=== PATIENT | female | born 1990 | race African-American/Black ===

== ENCOUNTER 2016-11-10 23:35 | Emergency (ER) | payer OTHER ==
[~2016-11-10] VITALS: Ht 167.6 cm; Wt 105.0 kg
[~2016-11-10 23:35] MED LIST: LOSA25TA12
[2016-11-11] MEDS ORDERED: LORAZEPAM 1MG TABLET PO ONE (01:15)
[2016-11-11 01:27] LABS: HEMOGLOBIN. 13.8 g/dL (12.0-16.0); MEAN CORPUSCULAR HEMOGLOBIN 28.8 pg (28.0-32.0); MEAN CORPUSCULAR HGB CONC 33.7 g/dL (31.0-37.0); MEAN CORPUSCULAR VOLUME 85.3 fL (81.0-99.0); MEAN PLATELET VOLUME 7.4 fl (7.4-10.4); MONOCYTES % 5.8 % (2.0-8.0); NEUTROPHILS % 58.2 % (40.0-76.0); PLATELET 339 x1000/uL (130-400); RED CELL DISTRIBUTION WIDTH 14.6 % (11.6-14.6); WHITE BLOOD COUNT 6.1 x1000/uL (4.5-11.0)
[2016-11-11 01:37] LABS: ANION GAP 14; CALCIUM 8.8 mg/dL (8.5-10.1); CARBON DIOXIDE 27 mEq/L (21-32); CHLORIDE 103 mEq/L (98-107); INDEX HEMOLYSI 1 (1-3); INDEX ICTERIC 1 (1-4); INDEX LIPEMIC 1 (1-3); UREA NITROGEN BLOOD 13 mg/dL (7-21); eGFR > 60 mL/min (>60)
[2016-11-11 01:40] LABS: TROPONIN I < 0.02 ng/mL (0.00-0.04)
[2016-11-11] MEDS ORDERED: HYDROCODONE/ACETAMINOPHEN 5/325MG TABLET PO ONE (03:45)
[2016-11-11 04:30] VITALS: BP 134/85
== END 2016-11-11 05:13 | disposition home or self-care (01) ==
LOC: ER 23:38
DX: I12.9 Hypertensive chronic kidney disease with stage 1 through stage 4 chronic kidney disease, or unspecified chronic kidney disease (principal); N18.9 Chronic kidney disease, unspecified; Z79.899 Other long term (current) drug therapy
CPT/HCPCS: 36415; 71010; 80048; 81025; 84484; 85025; 93005; 99285

== ENCOUNTER 2017-10-03 11:44 | Emergency (ER) | payer OTHER | END 2017-10-03 15:00 | disposition left against medical advice (07) | LOC: ER 13:06 | DX: Z53.21 Procedure and treatment not carried out due to patient leaving prior to being seen by health care provider (principal) ==

== ENCOUNTER 2019-02-01 12:43 | Observation (INO) | payer OTHER ==
[~2019-02-01] VITALS: Ht 166.4 cm; Wt 112.5 kg
[~2019-02-01 12:43] MED LIST changes: -LOSA25TA12; +LOSA25TA26
[2019-02-01] MEDS ORDERED: ASPI-1393 PO (13:04)
[2019-02-01] MEDS ORDERED: PNV1TABL76 PO (13:04)
[2019-02-01] MEDS ORDERED: LABE200T28 PO (13:04)
== END 2019-02-01 14:55 | disposition home or self-care (01) ==
LOC: 8 EST LDRP 12:43
PROVIDERS: ADMIT Obstetrics & Gynecology; ATTEND Obstetrics & Gynecology
DX: O26.892 Other specified pregnancy related conditions, second trimester (principal); R10.30 Lower abdominal pain, unspecified; Z3A.24 24 weeks gestation of pregnancy
CPT/HCPCS: 99281; G0378

== ENCOUNTER 2019-08-17 22:01 | Emergency (ER) | payer OTHER ==
[~2019-08-17] VITALS: Ht 167.6 cm; Wt 99.0 kg
[~2019-08-17 22:01] MED LIST changes: +ASPI-1393 PO; +LABE200T28 PO; -LOSA25TA26; +PNV1TABL76 PO
[2019-08-17] MEDS ORDERED: ACETAMINOPHEN 500MG TABLET PO ONE (23:45)
[2019-08-18 00:20] LABS: BASOPHILS % 0.9 % (0.0-2.0); EOSINOPHILS % 3.9 % (0.0-5.0); HEMATOCRIT. 37.8 % (36.0-48.0); HEMOGLOBIN. 12.7 g/dL (12.0-16.0); LYMPHOCYTES % 39.4 % (20.0-50.0); MEAN CORPUSCULAR HEMOGLOBIN 28.8 pg (28.0-32.0); MEAN CORPUSCULAR VOLUME 85.6 fL (81.0-99.0); MEAN PLATELET VOLUME 7.1 fl (7.4-10.4); NEUTROPHILS % 47.8 % (40.0-76.0); PLATELET 321 x1000/uL (130-400); RED BLOOD CELL COUNT 4.42 mill/uL (4.2-5.4); RED CELL DISTRIBUTION WIDTH 15.3 % (11.6-14.6)
[2019-08-18 00:25] LABS: CHLORIDE 107 mEq/L (98-107)
[2019-08-18 01:00] VITALS: BP 169/110
[2019-08-18] MEDS ORDERED: LABETALOL HCL 200MG TABLET PO SCH (01:00)
[2019-08-18] MEDS ORDERED: LABETALOL HCL 100MG TABLET PO SCH (01:00)
== END 2019-08-18 01:22 | disposition home or self-care (01) ==
LOC: ER 22:01
DX: J34.89 Other specified disorders of nose and nasal sinuses (principal); I10 Essential (primary) hypertension; Z98.890 Other specified postprocedural states; Z79.82 Long term (current) use of aspirin; Z79.899 Other long term (current) drug therapy
CPT/HCPCS: 36415; 71045; 84443; 99284

== ENCOUNTER 2021-04-20 19:40 | Emergency (ER) | payer OTHER ==
[~2021-04-20] VITALS: Ht 172.7 cm; Wt 90.0 kg
[~2021-04-20 19:40] MED LIST changes: -ASPI-1393 PO; +ASPI-1497 PO; -LABE200T28 PO; +LABE200T9 PO
[2021-04-20] MEDS ORDERED: LABETALOL 5MG/ML SYR 20 MG/4 ML SYRINGE IV ONE (23:15)
[2021-04-20 23:30] LABS: BASOPHILS % 0.7 % (0.0-2.0); EOSINOPHILS % 3.4 % (0.0-5.0); HEMATOCRIT. 37.9 % (36.0-48.0); HEMOGLOBIN. 12.7 g/dL (12.0-16.0); LYMPHOCYTES % 25.1 % (20.0-50.0); MEAN CORPUSCULAR HEMOGLOBIN 26.9 pg (28.0-32.0); MEAN CORPUSCULAR VOLUME 80.2 fL (81.0-99.0); MEAN PLATELET VOLUME 7.6 fl (7.4-10.4); MONOCYTES % 6.3 % (2.0-8.0); NEUTROPHILS % 64.5 % (40.0-76.0); PLATELET 326 x1000/uL (130-400); RED BLOOD CELL COUNT 4.72 mill/uL (4.2-5.4); RED CELL DISTRIBUTION WIDTH 15.6 % (11.6-14.6)
[2021-04-20 23:37] LABS: CHLORIDE 106 mEq/L (98-107)
[2021-04-20 23:46] LABS: CLARITY URINE CLEAR (CLEAR); COLOR URINE YELLOW (YELLOW); KETONES URINE NEGATIVE (NEGATIVE); LEUKOCYTE ESTERASE URINE NEGATIVE (NEGATIVE); NITRITE URINE NEGATIVE (NEGATIVE); OCCULT BLOOD URINE NEGATIVE (NEGATIVE); PH URINE 7.5 (4.5-8.0); PROTEIN URINE 2+ (NEGATIVE); SPECIFIC GRAVITY URINE 1.011 (1.005-1.030); UROBILINOGEN URINE 0.2 E.U./dL (0.2-1.0)
[2021-04-21] MEDS ORDERED: ACETAMINOPHEN 325MG TABLET PO ONE (01:30)
[2021-04-21] MEDS ORDERED: LABETALOL 5MG/ML SYR 20 MG/4 ML SYRINGE IV ONE (02:00)
[2021-04-21 02:48] VITALS: BP 130/80
== END 2021-04-21 02:57 | disposition home or self-care (01) ==
LOC: ER 22:40
DX: O26.891 Other specified pregnancy related conditions, first trimester (principal); Z3A.13 13 weeks gestation of pregnancy; I10 Essential (primary) hypertension; Z98.890 Other specified postprocedural states
CPT/HCPCS: 36415; 80053; 81003; 85025; 93005; 96374; 96376; 99291; J3490

== ENCOUNTER 2021-06-21 12:34 | Observation (INO) | payer OTHER, BC ==
[~2021-06-21] VITALS: Ht 165.1 cm; Wt 112.5 kg
[2021-06-21] MEDS ORDERED: LABETALOL HCL 200MG TABLET PO SCH (13:15)
== END 2021-06-21 15:30 | disposition home or self-care (01) ==
LOC: 8 EST LDRP 12:34
PROVIDERS: ADMIT Obstetrics & Gynecology; ATTEND Obstetrics & Gynecology
DX: O26.892 Other specified pregnancy related conditions, second trimester (principal); R10.9 Unspecified abdominal pain; O16.2 Unspecified maternal hypertension, second trimester; Z3A.22 22 weeks gestation of pregnancy
CPT/HCPCS: 59025; 76805; G0378; 99281

== ENCOUNTER 2021-08-25 16:52 | Inpatient (IN) | payer BC, MEDICAID ==
[~2021-08-25] VITALS: Ht 167.6 cm; Wt 111.6 kg
[2021-08-25] MEDS ORDERED: NIFE90TA2 PO (17:21)
[2021-08-25] MEDS ORDERED: CARBOPROST TROMETHAMINE 250 MCG/ML AMPUL IM PRN (17:45)
[2021-08-25] MEDS ORDERED: METHYLERGONOVINE MALEATE 0.2 MG/ML IM PRN (17:45)
[2021-08-25] MEDS ORDERED: NALOXONE HCL 0.4 MG/ML 1ML VIAL IM PRN (17:45)
[2021-08-25] MEDS: LACTATED RINGERS 1,000 ML IV SCH ×2 (17:55→21:07)
[2021-08-25] MEDS ORDERED: DEXT 5%/LR + PITOCIN 20UNITS/L 1,000 ML IV SCH (18:00)
[2021-08-25 18:21] LABS: CLARITY URINE CLEAR (CLEAR); COLOR URINE YELLOW (YELLOW); KETONES URINE TRACE (NEGATIVE); LEUKOCYTE ESTERASE URINE NEGATIVE (NEGATIVE); NITRITE URINE NEGATIVE (NEGATIVE); OCCULT BLOOD URINE NEGATIVE (NEGATIVE); PROTEIN URINE 3+ (NEGATIVE); SPECIFIC GRAVITY URINE 1.022 (1.005-1.030); UROBILINOGEN URINE 0.2 E.U./dL (0.2-1.0)
[2021-08-25 18:22] LABS: BASOPHILS % 0.4 % (0.0-2.0); EOSINOPHILS % 1.9 % (0.0-5.0); HEMATOCRIT. 34.4 % (36.0-48.0); HEMOGLOBIN. 11.3 g/dL (12.0-16.0); LYMPHOCYTES % 23.4 % (20.0-50.0); MEAN CORPUSCULAR HEMOGLOBIN 26.5 pg (28.0-32.0); MEAN CORPUSCULAR VOLUME 80.7 fL (81.0-99.0); MEAN PLATELET VOLUME 8.6 fl (7.4-10.4); MONOCYTES % 8.1 % (2.0-8.0); NEUTROPHILS % 66.2 % (40.0-76.0); PLATELET 294 x1000/uL (130-400); RED BLOOD CELL COUNT 4.27 mill/uL (4.2-5.4); RED CELL DISTRIBUTION WIDTH 18.6 % (11.6-14.6)
[2021-08-25 18:32] LABS: *AMPHETAMINES SCREEN URINE NEGATIVE (NEGATIVE); *BARBITURATES SCREEN URINE NEGATIVE (NEGATIVE); *BENZODIAZEPINES SCREEN URINE NEGATIVE (NEGATIVE); *COCAINE SCREEN URINE NEGATIVE (NEGATIVE); METHADONE URINE SCREEN NEGATIVE (NEGATIVE)
[2021-08-25 18:33] LABS: CANNABINOID URINE SCREEN NEGATIVE (NEGATIVE); OPIATES URINE SCREEN NEGATIVE (NEGATIVE); PHENCYCLIDINE URINE SCREEN NEGATIVE (NEGATIVE)
[2021-08-25 18:58] LABS: HEPATITIS B SURFACE ANTIGEN NEGATIVE
[2021-08-25 19:00] LABS: INR 0.9; PARTIAL THROMBOPLASTIN TIME 29.3 sec (23.4-31.0); PROTHROMBIN TIME 9.6 sec (9.6-11.0)
[2021-08-25] MEDS ORDERED: LABETALOL HCL 5MG/ML VIAL 20ML IV PRN ×3 (19:15)
[2021-08-25] MEDS ORDERED: HYDRALAZINE 20MG/ML VIAL IV PRN ×2 (19:15)
[2021-08-25] MEDS ORDERED: HYDRALAZINE 20MG/ML VIAL IV NR ×2 (19:30→22:00)
[2021-08-25] MEDS ORDERED: HYDRALAZINE 20MG/ML VIAL IV ONE (19:30)
[2021-08-25] MEDS ORDERED: BETAMETHASONE ACET/BETAMET 30 MG/5 ML VIAL IM SCH (20:00)
[2021-08-25 20:15] LABS: CHLORIDE 109 mEq/L (98-107)
[2021-08-25 20:21] LABS: D-DIMER 0.95 mg/L FEU (<0.50)
[2021-08-25 22:40] LABS: BASOPHILS % 0.5 % (0.0-2.0); EOSINOPHILS % 2.2 % (0.0-5.0); HEMATOCRIT. 33.8 % (36.0-48.0); HEMOGLOBIN. 11.5 g/dL (12.0-16.0); LYMPHOCYTES % 17.4 % (20.0-50.0); MEAN CORPUSCULAR HEMOGLOBIN 27.3 pg (28.0-32.0); MEAN CORPUSCULAR VOLUME 80.3 fL (81.0-99.0); MEAN PLATELET VOLUME 8.6 fl (7.4-10.4); NEUTROPHILS % 75.9 % (40.0-76.0); PLATELET 288 x1000/uL (130-400); RED BLOOD CELL COUNT 4.21 mill/uL (4.2-5.4)
[2021-08-25 22:46] LABS: CLARITY URINE CLEAR (CLEAR); COLOR URINE YELLOW (YELLOW); KETONES URINE NEGATIVE (NEGATIVE); LEUKOCYTE ESTERASE URINE NEGATIVE (NEGATIVE); NITRITE URINE NEGATIVE (NEGATIVE); OCCULT BLOOD URINE NEGATIVE (NEGATIVE); PROTEIN URINE 2+ (NEGATIVE); SPECIFIC GRAVITY URINE 1.012 (1.005-1.030); UROBILINOGEN URINE 0.2 E.U./dL (0.2-1.0)
[2021-08-25 22:47] LABS: CHLORIDE 111 mEq/L (98-107)
[2021-08-25 22:54] LABS: D-DIMER 1.03 mg/L FEU (<0.50); INR 0.9; PARTIAL THROMBOPLASTIN TIME 29.8 sec (23.4-31.0); PROTHROMBIN TIME 9.6 sec (9.6-11.0)
[2021-08-26] VITALS (7 sets, daily range): BP systolic 107–142; BP diastolic 59–83
[2021-08-26] MEDS ORDERED: ACETAMINOPHEN 500MG TABLET PO NR (01:30)
[2021-08-26] MEDS ORDERED: HYDRALAZINE 20MG/ML VIAL IV PRN (05:00)
[2021-08-26] MEDS ORDERED: LABETALOL HCL 5MG/ML VIAL 20ML IV PRN ×3 (05:00)
[2021-08-26] MEDS: LACTATED RINGERS 1,000 ML IV SCH (05:08)
[2021-08-26] MEDS ORDERED: OXYTOCIN 10 UNITS/ML 1ML ONE (07:42)
[2021-08-26] MEDS ORDERED: FENTANYL CITRATE/PF 50MCG/ML 2ML VIAL ONE (07:42)
[2021-08-26] MEDS ORDERED: MORPHINE SULFATE/PF 1MG/ML 10ML AMP ONE (07:42)
[2021-08-26] MEDS ORDERED: PHENYLEPHRINE HCL 10 MG/ML 1ML (IV VIAL) IV ONE (07:42)
[2021-08-26] MEDS ORDERED: EPHEDRINE SULFATE 50MG/ML VIAL ONE (07:43)
[2021-08-26] MEDS ORDERED: DIPHENHYDRAMINE 50MG/ML VIAL ONE (07:43)
[2021-08-26] MEDS ORDERED: ONDANSETRON HCL 4MG/2ML INJ ONE (07:43)
[2021-08-26] MEDS ORDERED: CEFAZOLIN SODIUM 1000MG/VIAL ONE (07:43)
[2021-08-26] MEDS ORDERED: HYDRALAZINE 20MG/ML VIAL ONE (08:09)
[2021-08-26] MEDS ORDERED: BUTORPHANOL TARTRATE 2 MG/ML VIAL IV PRN ×2 (08:45→13:30)
[2021-08-26] MEDS ORDERED: NALOXONE HCL 0.4 MG/ML 1ML VIAL IV PRN (08:45)
[2021-08-26] MEDS ORDERED: DIPHENHYDRAMINE 50MG/ML VIAL IV PRN (08:45)
[2021-08-26] MEDS ORDERED: LANOLIN OINT 7GM TUBE TOP PRN (09:00)
[2021-08-26] MEDS ORDERED: RHO(D) IMMUNE GLOBULIN 300 MCG/SYR IM PRN (09:00)
[2021-08-26] MEDS ORDERED: ONDANSETRON HCL 4MG/2ML INJ IV PRN (09:00)
[2021-08-26] MEDS ORDERED: HEMORRHOIDAL SUPP PR PRN (09:00)
[2021-08-26] MEDS ORDERED: IBUPROFEN 400MG TABLET PO PRN (09:00)
[2021-08-26] MEDS ORDERED: BISACODYL 10MG SUPP PR PRN (09:00)
[2021-08-26] MEDS ORDERED: DIPHENHYDRAMINE 25MG CAPSULE PO PRN (09:00)
[2021-08-26] MEDS ORDERED: HYDROCODONE/ACETAMINOPHEN 5/325MG TABLET PO PRN (09:00)
[2021-08-26] MEDS ORDERED: MAGNESIUM 4 G PREMIX 100 ML IV NR (09:10)
[2021-08-26] MEDS: MAGNESIUM 20 G PREMIX (L & D) 500 ML IV SCH (09:39)
[2021-08-26] MEDS: DEXT 5%/LR + PITOCIN 20UNITS/L 1,000 ML IV SCH ×2 (11:07→21:06)
[2021-08-26] MEDS ORDERED: LABETALOL HCL 300MG TABLET PO SCH (13:00)
[2021-08-26] MEDS: LABETALOL HCL 200MG TABLET PO SCH (22:02)
[2021-08-27 00:15] VITALS: BP 110/61
[2021-08-27 03:00] VITALS: BP 116/68
[2021-08-27 05:00] VITALS: BP 132/71
[2021-08-27] MEDS: MAGNESIUM 20 G PREMIX (L & D) 500 ML IV SCH (05:03)
[2021-08-27] MEDS: LABETALOL HCL 200MG TABLET PO SCH ×3 (05:51→22:15)
[2021-08-27] MEDS: MAGNESIUM/ALUMINUM HYDROXIDE/SIMETHICONE 30ML UDC PO SCH ×6 (07:30→21:04)
[2021-08-27] MEDS: DEXT 5%/LR + PITOCIN 20UNITS/L 1,000 ML IV SCH (07:31)
[2021-08-27 07:40] LABS: BASOPHILS % 0.1 % (0.0-2.0); EOSINOPHILS % 0.1 % (0.0-5.0); HEMATOCRIT. 22.4 % (36.0-48.0); HEMOGLOBIN. 7.7 g/dL (12.0-16.0); LYMPHOCYTES % 13.9 % (20.0-50.0); MEAN CORPUSCULAR HEMOGLOBIN 27.7 pg (28.0-32.0); MEAN CORPUSCULAR VOLUME 80.9 fL (81.0-99.0); MEAN PLATELET VOLUME 8.6 fl (7.4-10.4); MONOCYTES % 4.8 % (2.0-8.0); NEUTROPHILS % 81.1 % (40.0-76.0); PLATELET 248 x1000/uL (130-400); RED BLOOD CELL COUNT 2.77 mill/uL (4.2-5.4); RED CELL DISTRIBUTION WIDTH 18.6 % (11.6-14.6)
[2021-08-27 08:00] VITALS: BP 130/72
[2021-08-27] MEDS: PRENATAL VIT/FE FUMARATE/FA TABLET PO SCH (08:09)
[2021-08-27] MEDS: FERROUS SULFATE 325MG TABLET PO SCH ×3 (08:09→17:58)
[2021-08-27] MEDS: SIMETHICONE 80MG TABLET CHEW PO SCH ×4 (08:10→21:03)
[2021-08-27] MEDS: IBUPROFEN 800MG TABLET PO PRN ×2 (13:00→21:04)
[2021-08-27 14:00] VITALS: BP 136/67
[2021-08-27 20:00] VITALS: BP 125/68
[2021-08-27] MEDS: DOCUSATE SODIUM 100MG CAPSULE PO SCH (21:04)
[2021-08-28 05:30] VITALS: BP 136/86
[2021-08-28] MEDS: LABETALOL HCL 200MG TABLET PO SCH ×3 (05:54→21:35)
[2021-08-28 07:30] VITALS: BP 141/82
[2021-08-28] MEDS: SIMETHICONE 80MG TABLET CHEW PO SCH ×5 (08:00→21:35)
[2021-08-28] MEDS: FERROUS SULFATE 325MG TABLET PO SCH ×3 (08:49→17:20)
[2021-08-28] MEDS: IBUPROFEN 800MG TABLET PO PRN ×2 (08:49→17:21)
[2021-08-28] MEDS: PRENATAL VIT/FE FUMARATE/FA TABLET PO SCH (08:49)
[2021-08-28 13:55] VITALS: BP 168/88
[2021-08-28 17:24] LABS: MEAN CORPUSCULAR VOLUME 81.6 fL (81.0-99.0); PLATELET 249 x1000/uL (130-400); RED BLOOD CELL COUNT 2.56 mill/uL (4.2-5.4); RED CELL DISTRIBUTION WIDTH 19.2 % (11.6-14.6)
[2021-08-28 17:37] LABS: HEMOGLOBIN 6.9 g/dL (12.0-16.0)
[2021-08-28 17:38] LABS: HEMATOCRIT 20.9 % (36.0-48.0)
[2021-08-28 20:00] VITALS: BP 170/98
[2021-08-28] MEDS: MAGNESIUM/ALUMINUM HYDROXIDE/SIMETHICONE 30ML UDC PO SCH ×2 (21:00→21:35)
[2021-08-28] MEDS: DOCUSATE SODIUM 100MG CAPSULE PO SCH (21:35)
[2021-08-29] VITALS: BP 129/80
[2021-08-29 04:00] VITALS: BP 142/80
[2021-08-29] MEDS: IBUPROFEN 800MG TABLET PO PRN (04:13)
[2021-08-29] MEDS: LABETALOL HCL 200MG TABLET PO SCH (06:08)
[2021-08-29 07:30] VITALS: BP 170/106
[2021-08-29] MEDS: MAGNESIUM/ALUMINUM HYDROXIDE/SIMETHICONE 30ML UDC PO SCH (07:30)
[2021-08-29] MEDS: SIMETHICONE 80MG TABLET CHEW PO SCH (08:00)
[2021-08-29] MEDS: FERROUS SULFATE 325MG TABLET PO SCH (08:30)
[2021-08-29] MEDS: PRENATAL VIT/FE FUMARATE/FA TABLET PO SCH (08:30)
[2021-08-29] MEDS ORDERED: IBUP-2030 PO (09:15)
== END 2021-08-29 12:15 | disposition home or self-care (01) | DRG 784 ==
LOC: 8 EST LDRP 16:52 → OBSVTOIN 16:52 → 8EST 08-26 11:58
PROVIDERS: ADMIT Obstetrics & Gynecology; ATTEND Obstetrics & Gynecology
PROC: 10D00Z1 Extraction of Products of Conception, Low, Open Approach (ICD-10-PCS; principal; 2021-08-26)
PROC: 0UB70ZZ Excision of Bilateral Fallopian Tubes, Open Approach (ICD-10-PCS; 2021-08-26)
DX: O34.211 Maternal care for low transverse scar from previous cesarean delivery (principal); O99.324 Drug use complicating childbirth; O13.4 Gestational [pregnancy-induced] hypertension without significant proteinuria, complicating childbirth; F16.10 Hallucinogen abuse, uncomplicated; O14.94 Unspecified pre-eclampsia, complicating childbirth; N28.9 Disorder of kidney and ureter, unspecified; O99.892 Other specified diseases and conditions complicating childbirth; Z20.822 Contact with and (suspected) exposure to COVID-19; O99.03 Anemia complicating the puerperium; Z82.49 Family history of ischemic heart disease and other diseases of the circulatory system; Z82.3 Family history of stroke; Z37.0 Single live birth; Z30.2 Encounter for sterilization; Z3A.33 33 weeks gestation of pregnancy
CPT/HCPCS: 36415; 76805; 76818; 80053; 80305; 80359; 81003; 83735; 84550; 85025; 85027; 85379; 85384; 86592; 86703; 86762; 86850; 86900; 86920; 87340; 87426; 88302; 88307; 99281; G0378; J0360; J0595; J0690; J0702; J1200; J2274; J2370; J2405; J2590; J3010; J3475; J3490; J7120; A4315